=== PATIENT | female | born 1935 | race Caucasian/White ===

== ENCOUNTER 2017-05-18 08:20 | Inpatient (IN) | payer SELFPAY ==
[~2017-05-18] VITALS: Ht 152.4 cm; Wt 56.7 kg
[2017-05-18 08:50] LABS: BASOPHILS ABSOLUTE AUTO 0.05 K/mm3 (0.00-0.23); BASOPHILS PERCENT AUTO 1 % (0-2); EOSINOPHILS ABSOLUTE AUTO 0.12 K/mm3 (0.00-0.68); EOSINOPHILS PERCENT AUTO 2 % (0-6); Hematocrit 47.1 % (33.0-51.0); Hemoglobin 15.1 g/dL (11.5-16.0); IMMATURE GRAN ABSOLUTE AUTO 0.11 K/mm3 (0.00-0.10); IMMATURE GRAN PERCENT AUTO 1 % (0-1); LYMPHOCYTES ABSOLUTE AUTO 2.54 K/mm3 (0.84-5.20); LYMPHOCYTES PERCENT AUTO 32 % (21-46); MONOCYTES ABSOLUTE AUTO 0.54 K/mm3 (0.16-1.47); MONOCYTES PERCENT AUTO 7 % (4-13); Mean Corpuscular HGB 27.8 pg (26.0-34.0); Mean Corpuscular HGB Conc 32.1 g/dL (31.5-36.5); Mean Corpuscular Volume 87 fL (80-100); Mean Platelet Volume 9.9 fL (9.1-12.4); NEUTROPHILS ABSOLUTE AUTO 4.64 K/mm3 (1.96-9.15); NEUTROPHILS PERCENT AUTO 58 % (41-73); Platelet Count 244 K/mm3 (150-400); RDW Coefficient Variation 11.9 % (11.7-14.2); RDW Standard Deviation 38.3 fL (35.1-46.3); Red Blood Cell Count 5.43 M/mm3 (3.80-5.20)
[2017-05-18 10:38] LABS: International Normalized Ratio 1.03; Prothrombin Time Results 10.7 Sec (9.7-11.5)
[2017-05-18 10:43] LABS: Alanine Aminotransfer (ALT/SGP 50 U/L (12-78); Albumin, Blood 3.1 g/dL (3.4-5.0); Alk Phos 97 U/L (50-136); Anion Gap 6 mmol/L (6-16); Aspartate Aminotrans (AST/SGOT 42 U/L (12-37); Blood Urea Nitrogen 20 mg/dL (8-24); Bun/Creatinine Ratio 27.9 (12.0-20.0); CO2, Blood 25 mmol/L (21-32); Calcium, Blood 7.8 mg/dL (8.5-10.1); Chloride, Blood 109 mmol/L (98-108); Creatinine, Blood 0.72 mg/dL (0.40-1.00); Ethanol (Alcohol), Blood, Med <3 mg/dL; Globulin, Blood 3.1 g/dL (2.2-4.0); Glomerular Filtration Rate >60 (60-); Glucose, Blood 147 mg/dL (70-99); Potassium, Blood 4.3 mmol/L (3.5-5.5); Sodium, Blood 140 mmol/L (136-145); Total Protein, Blood 6.2 g/dL (6.4-8.2)
[2017-05-19 05:50] LABS: BASOPHILS PERCENT AUTO 0 % (0-2); EOSINOPHILS PERCENT AUTO 0 % (0-6); Hematocrit 36.9 % (33.0-51.0); Hemoglobin 11.6 g/dL (11.5-16.0); IMMATURE GRAN ABSOLUTE AUTO 0.07 K/mm3 (0.00-0.10); IMMATURE GRAN PERCENT AUTO 0 % (0-1); LYMPHOCYTES ABSOLUTE AUTO 0.77 K/mm3 (0.84-5.20); LYMPHOCYTES PERCENT AUTO 5 % (21-46); MONOCYTES ABSOLUTE AUTO 1.75 K/mm3 (0.16-1.47); MONOCYTES PERCENT AUTO 11 % (4-13); Mean Corpuscular HGB 28.1 pg (26.0-34.0); Mean Corpuscular HGB Conc 31.4 g/dL (31.5-36.5); Mean Corpuscular Volume 89 fL (80-100); NEUTROPHILS ABSOLUTE AUTO 13.33 K/mm3 (1.96-9.15); NEUTROPHILS PERCENT AUTO 84 % (41-73); RDW Coefficient Variation 12.3 % (11.7-14.2); RDW Standard Deviation 40.3 fL (35.1-46.3); Red Blood Cell Count 4.13 M/mm3 (3.80-5.20); White Blood Cell Count 15.92 K/mm3 (4.00-11.30)
[2017-05-19 05:59] LABS: Platelet Count 193 K/mm3 (150-400)
[2017-05-19 06:20] LABS: Anion Gap 9 mmol/L (6-16); Blood Urea Nitrogen 25 mg/dL (8-24); Bun/Creatinine Ratio 28.2 (12.0-20.0); CO2, Blood 21 mmol/L (21-32); Calcium, Blood 7.9 mg/dL (8.5-10.1); Chloride, Blood 108 mmol/L (98-108); Creatinine, Blood 0.89 mg/dL (0.40-1.00); Glomerular Filtration Rate >60 (60-); Glucose, Blood 157 mg/dL (70-99); Potassium, Blood 4.8 mmol/L (3.5-5.5); Sodium, Blood 138 mmol/L (136-145)
[2017-05-20] MEDS ORDERED: TRAM50 PO (13:21)
== END 2017-05-20 14:56 | disposition home or self-care (01) | DRG 464 ==
LOC: ER 08:20 → SURS 08:21 → EDBD 05-19 08:05 → SURS 05-19 08:05
PROVIDERS: Emergency Medicine; Orthopaedic Surgery
PROC: 0JQH0ZZ Repair Left Lower Arm Subcutaneous Tissue and Fascia, Open Approach (ICD-10-PCS; 2017-05-18)
PROC: 0JBJ0ZZ Excision of Right Hand Subcutaneous Tissue and Fascia, Open Approach (ICD-10-PCS; 2017-05-18)
PROC: 0MQ70ZZ Repair Right Hand Bursa and Ligament, Open Approach (ICD-10-PCS; principal; 2017-05-18 16:30)
PROC: 0JBH0ZZ Excision of Left Lower Arm Subcutaneous Tissue and Fascia, Open Approach (ICD-10-PCS; 2017-05-18 16:30)
DX: S56.922A Laceration of unspecified muscles, fascia and tendons at forearm level, left arm, initial encounter (principal); S27.0XXA Traumatic pneumothorax, initial encounter; S32.039A Unspecified fracture of third lumbar vertebra, initial encounter for closed fracture; S22.42XA Multiple fractures of ribs, left side, initial encounter for closed fracture; S56.425A Laceration of extensor muscle, fascia and tendon of right ring finger at forearm level, initial encounter; S51.812A Laceration without foreign body of left forearm, initial encounter; S61.411A Laceration without foreign body of right hand, initial encounter; V03.90XA Pedestrian on foot injured in collision with car, pick-up truck or van, unspecified whether traffic or nontraffic accident, initial encounter
CPT/HCPCS: 36415; 70450; 71046; 71260; 72125; 73090; 73130; 74177; 80048; 80053; 82947; 85025; 85610; 90471; 90714; 93005; 93010; 96361; 96374; 96375; 96376; 99285; G0480; J0171; J0690; J1100; J1170; J1885; J2370; J2405; J2710; J3010; J7030; J7120; Q9967

== ENCOUNTER 2017-07-12 00:02 | Day surgery (SDC) | payer SELFPAY ==
[~2017-07-12 00:02] MED LIST: TRAM50 PO
== END 2017-07-12 12:04 | disposition home or self-care (01) ==
LOC: WOUND 00:02
PROC: 0H5 Skin and Breast, Destruction (ICD-10-PCS; principal; 2017-07-12)
DX: S51.802A Unspecified open wound of left forearm, initial encounter (principal); S61.402A Unspecified open wound of left hand, initial encounter; V09.29XA Pedestrian injured in traffic accident involving other motor vehicles, initial encounter
CPT/HCPCS: G0463

== ENCOUNTER 2017-07-26 00:41 | Day surgery (SDC) | payer SELFPAY | END 2017-07-26 23:17 | disposition home or self-care (01) | LOC: WOUND 00:41 | PROC: 0H5 Skin and Breast, Destruction (ICD-10-PCS; principal; 2017-07-26) | DX: S51.802A Unspecified open wound of left forearm, initial encounter (principal); S61.402A Unspecified open wound of left hand, initial encounter; V09.29XA Pedestrian injured in traffic accident involving other motor vehicles, initial encounter | CPT/HCPCS: G0463 ==

== ENCOUNTER 2017-08-02 14:09 | Day surgery (SDC) | payer SELFPAY | END 2017-08-02 22:43 | disposition home or self-care (01) | LOC: WOUND 14:09 | PROC: 0H5 Skin and Breast, Destruction (ICD-10-PCS; principal; 2017-08-02) | DX: S51.802A Unspecified open wound of left forearm, initial encounter (principal); S61.402A Unspecified open wound of left hand, initial encounter; V09.29XA Pedestrian injured in traffic accident involving other motor vehicles, initial encounter | CPT/HCPCS: G0463 ==

== ENCOUNTER 2017-08-09 00:50 | Day surgery (SDC) | payer SELFPAY | END 2017-08-09 22:45 | disposition home or self-care (01) | LOC: WOUND 00:50 | DX: S51.802A Unspecified open wound of left forearm, initial encounter (principal); S61.402A Unspecified open wound of left hand, initial encounter; V09.29XA Pedestrian injured in traffic accident involving other motor vehicles, initial encounter | CPT/HCPCS: G0463 ==

== ENCOUNTER 2017-08-16 09:21 | Day surgery (SDC) | payer SELFPAY | END 2017-08-16 22:56 | disposition home or self-care (01) | LOC: WOUND 09:21 | PROC: 0H5 Skin and Breast, Destruction (ICD-10-PCS; principal; 2017-08-16) | DX: S51.802A Unspecified open wound of left forearm, initial encounter (principal); S61.402A Unspecified open wound of left hand, initial encounter | CPT/HCPCS: G0463 ==

== ENCOUNTER 2017-08-23 14:15 | Day surgery (SDC) | payer SELFPAY | END 2017-08-23 22:37 | disposition home or self-care (01) | LOC: WOUND 14:15 | PROC: 0H5 Skin and Breast, Destruction (ICD-10-PCS; principal; 2017-08-23) | DX: S51.802A Unspecified open wound of left forearm, initial encounter (principal); S61.402A Unspecified open wound of left hand, initial encounter | CPT/HCPCS: G0463 ==

== ENCOUNTER 2017-09-07 14:15 | Day surgery (SDC) | payer SELFPAY | END 2017-09-07 23:07 | disposition home or self-care (01) | LOC: WOUND 14:15 | PROC: 0H5 Skin and Breast, Destruction (ICD-10-PCS; principal; 2017-09-07) | DX: S51.802A Unspecified open wound of left forearm, initial encounter (principal); S61.402A Unspecified open wound of left hand, initial encounter; R22.2 Localized swelling, mass and lump, trunk | CPT/HCPCS: G0463 ==

== ENCOUNTER 2017-09-13 14:10 | Day surgery (SDC) | payer SELFPAY | END 2017-09-13 15:37 | disposition home or self-care (01) | LOC: WOUND 14:10 | PROC: 0H5 Skin and Breast, Destruction (ICD-10-PCS; principal; 2017-09-13) | DX: S51.802A Unspecified open wound of left forearm, initial encounter (principal); S61.402A Unspecified open wound of left hand, initial encounter; R22.2 Localized swelling, mass and lump, trunk | CPT/HCPCS: G0463 ==

== ENCOUNTER 2017-09-20 14:15 | Day surgery (SDC) | payer SELFPAY | END 2017-09-20 23:19 | disposition home or self-care (01) | LOC: WOUND 14:15 | DX: S51.802A Unspecified open wound of left forearm, initial encounter (principal); S61.402A Unspecified open wound of left hand, initial encounter; R22.2 Localized swelling, mass and lump, trunk | CPT/HCPCS: G0463 ==

== ENCOUNTER 2017-09-21 07:26 | Emergency (ER) | payer SELFPAY ==
[~2017-09-21] VITALS: Ht 152.4 cm; Wt 49.9 kg
== END 2017-09-21 09:46 | disposition home or self-care (01) ==
LOC: ER 07:26
DX: R19.00 Intra-abdominal and pelvic swelling, mass and lump, unspecified site (principal)
CPT/HCPCS: 71101; 99283

== ENCOUNTER 2017-09-27 14:15 | Day surgery (SDC) | payer SELFPAY | END 2017-09-27 16:38 | disposition home or self-care (01) | LOC: WOUND 14:15 | DX: Z48.00 Encounter for change or removal of nonsurgical wound dressing (principal); S51.802A Unspecified open wound of left forearm, initial encounter; S61.402A Unspecified open wound of left hand, initial encounter; V09.29XA Pedestrian injured in traffic accident involving other motor vehicles, initial encounter; R22.2 Localized swelling, mass and lump, trunk | CPT/HCPCS: G0463 ==

== ENCOUNTER 2018-05-08 05:53 | Emergency (ER) | payer SELFPAY ==
[~2018-05-08] VITALS: Ht 154.9 cm; Wt 49.9 kg
[2018-05-08] MEDS ORDERED: Prednisone20 MG PO (08:23)
[2018-05-08] MEDS ORDERED: ALBU90OI INH (08:23)
== END 2018-05-08 08:32 | disposition home or self-care (01) ==
LOC: ER 05:53
DX: J20.9 Acute bronchitis, unspecified (principal); R51 Headache
CPT/HCPCS: 71046; 94640; 99283-25

== ENCOUNTER 2019-06-05 15:34 | Emergency (ER) | payer SELFPAY ==
[~2019-06-05] VITALS: Ht 152.4 cm; Wt 49.9 kg
[~2019-06-05 15:34] MED LIST changes: +ALBU90OI INH; +Prednisone20 MG PO
== END 2019-06-05 19:26 | disposition home or self-care (01) ==
LOC: ER 15:34
DX: N63.0 Unspecified lump in unspecified breast (principal)
CPT/HCPCS: 99283

== ENCOUNTER 2019-10-11 09:51 | Day surgery (SDC) | payer SELFPAY ==
[~2019-10-11] VITALS: Ht 152.4 cm; Wt 52.0 kg
--- NOTE | 2019-10-11 12:23 | NUR ---
10/11/19 1223 JOSE VIDALES MULTIPLE IV ATTEMPTS.
--- NOTE | 2019-10-11 15:19 | NUR ---
10/11/19 1519 Judith Tellez PT STATES HAVING SOME PAIN ON THE LEFT SIDE OF CHEST FOLLOWING PROCEDURE BUT REFUSED RX OXYCODONE AND TYLENOL. PT STATES PAIN IS TOLERABLE AT THIS TIME.
== END 2019-10-11 15:44 | disposition home or self-care (01) ==
LOC: ORSCSDS 09:51
PROVIDERS: Surgery
PROC: 07B60ZX Excision of Left Axillary Lymphatic, Open Approach, Diagnostic (ICD-10-PCS; principal; 2019-10-11 13:45)
PROC: 0HBU0ZZ Excision of Left Breast, Open Approach (ICD-10-PCS; principal; 2019-10-11 13:45)
DX: C50.512 Malignant neoplasm of lower-outer quadrant of left female breast (principal); C77.3 Secondary and unspecified malignant neoplasm of axilla and upper limb lymph nodes
CPT/HCPCS: 38792; 88307; A9520; J0690; J1100; J2405; J2704; J3010; J7120; Q9968

== ENCOUNTER 2019-11-17 07:37 | Day surgery (SDC) | payer SELFPAY | END 2019-11-17 22:50 | disposition home or self-care (01) | LOC: MOI US 07:37 | DX: C77.3 Secondary and unspecified malignant neoplasm of axilla and upper limb lymph nodes (principal); C50.912 Malignant neoplasm of unspecified site of left female breast | CPT/HCPCS: 38505; 76942; 88305; 88341; 88342 ==

== ENCOUNTER 2020-03-07 10:53 | Day surgery (SDC) | payer SELFPAY ==
[~2020-03-07 10:53] MED LIST changes: +OXYC5
--- NOTE | 2020-03-07 13:04 | NUR ---
03/07/20 1303 HARIKA PALOMINO 1303-UPDATED PATIENT ON SURGERY TIME BEING DELAYED SLIGHTLY. PATIENT IS RESTING COMFORTABLY. NO COMPLAINTS OF PAIN.
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
== END 2020-03-07 15:20 | disposition home or self-care (01) ==
LOC: ORSCSDS 10:53
PROVIDERS: Surgery
PROC: 07B60ZX Excision of Left Axillary Lymphatic, Open Approach, Diagnostic (ICD-10-PCS; principal; 2020-03-07 13:15)
DX: C50.512 Malignant neoplasm of lower-outer quadrant of left female breast (principal); C77.3 Secondary and unspecified malignant neoplasm of axilla and upper limb lymph nodes
CPT/HCPCS: 88307; J0690; J1100; J1885; J2250; J2405; J2704; J3010; J7120

== ENCOUNTER 2022-06-18 09:16 | Emergency (ER) | payer SELFPAY ==
[~2022-06-18] VITALS: Ht 152.4 cm; Wt 54.4 kg
[2022-06-18] MEDS ORDERED: DILT120 PO (09:39)
[2022-06-18 10:06] LABS: BASOPHILS ABSOLUTE AUTO 0.03 K/mm3 (0.00-0.23); BASOPHILS PERCENT AUTO 1 % (0-2); EOSINOPHILS ABSOLUTE AUTO 0.08 K/mm3 (0.00-0.68); EOSINOPHILS PERCENT AUTO 1 % (0-6); Hematocrit 42.6 % (33.0-51.0); Hemoglobin 14.4 g/dL (11.5-16.0); IMMATURE GRAN ABSOLUTE AUTO 0.05 K/mm3 (0.00-0.10); IMMATURE GRAN PERCENT AUTO 1 % (0-1); LYMPHOCYTES PERCENT AUTO 12 % (21-46); MONOCYTES ABSOLUTE AUTO 0.77 K/mm3 (0.16-1.47); MONOCYTES PERCENT AUTO 14 % (4-13); Mean Corpuscular HGB 28.5 pg (26.0-34.0); Mean Corpuscular HGB Conc 33.8 g/dL (31.5-36.5); Mean Corpuscular Volume 84 fL (80-100); Mean Platelet Volume 10.5 fL (9.1-12.4); NEUTROPHILS ABSOLUTE AUTO 4.08 K/mm3 (1.96-9.15); NEUTROPHILS PERCENT AUTO 71 % (41-73); Platelet Count 209 K/mm3 (150-400); RDW Standard Deviation 39.6 fL (35.1-46.3); Red Blood Cell Count 5.05 M/mm3 (3.80-5.20); White Blood Cell Count 5.71 K/mm3 (4.00-11.30)
[2022-06-18 10:26] LABS: Albumin, Blood 3.3 g/dL (3.4-5.0); Albumin/Globulin Ratio 0.8 (0.8-1.8); Bilirubin, Total 1.3 mg/dL (0.1-1.0); Bun/Creatinine Ratio 14.8 (12.0-20.0); Creatinine, Blood 0.67 mg/dL (0.40-1.00); Globulin, Blood 3.9 g/dL (2.2-4.0); Potassium, Blood 4.4 mmol/L (3.5-5.5); Total Protein, Blood 7.2 g/dL (6.4-8.2)
== END 2022-06-18 13:50 | disposition home or self-care (01) ==
LOC: ER 09:16
PROVIDERS: Physician Assistant
DX: R06.02 Shortness of breath (principal); Z79.899 Other long term (current) drug therapy
CPT/HCPCS: 36415; 71046; 80053; 83690; 83880; 84484; 85025; 93005; 93010; 99284-25

== ENCOUNTER 2024-04-27 13:30 | Inpatient (IN) | payer SELFPAY ==
[~2024-04-27] VITALS: Ht 152.4 cm; Wt 46.0 kg
[~2024-04-27 13:30] MED LIST changes: +DILT120 PO
[2024-04-27] MEDS ORDERED: Diltiazem HCl 5 MG / ML 5ML Vial IV ONE ×2 (15:15→21:43)
[2024-04-27 15:56] LABS: BASOPHILS ABSOLUTE AUTO 0.01 K/mm3 (0.00-0.23); BASOPHILS PERCENT AUTO 0 % (0-2); EOSINOPHILS PERCENT AUTO 0 % (0-6); Hematocrit 44.4 % (33.0-51.0); Hemoglobin 14.7 g/dL (11.5-16.0); IMMATURE GRAN ABSOLUTE AUTO 0.02 K/mm3 (0.00-0.10); IMMATURE GRAN PERCENT AUTO 0 % (0-1); LYMPHOCYTES ABSOLUTE AUTO 0.56 K/mm3 (0.84-5.20); LYMPHOCYTES PERCENT AUTO 11 % (21-46); MONOCYTES ABSOLUTE AUTO 1.08 K/mm3 (0.16-1.47); MONOCYTES PERCENT AUTO 21 % (4-13); Mean Corpuscular HGB 28.5 pg (26.0-34.0); Mean Corpuscular HGB Conc 33.1 g/dL (31.5-36.5); Mean Corpuscular Volume 86 fL (80-100); Mean Platelet Volume 9.9 fL (9.1-12.4); NEUTROPHILS ABSOLUTE AUTO 3.54 K/mm3 (1.96-9.15); NEUTROPHILS PERCENT AUTO 68 % (41-73); Platelet Count 203 K/mm3 (150-400); RDW Coefficient Variation 13.4 % (11.7-14.2); RDW Standard Deviation 42.1 fL (35.1-46.3); Red Blood Cell Count 5.15 M/mm3 (3.80-5.20); White Blood Cell Count 5.21 K/mm3 (4.00-11.30)
[2024-04-27 16:20] LABS: Albumin, Blood 3.8 g/dL (3.4-5.0); Albumin/Globulin Ratio 1.1 (0.8-1.8); Bilirubin, Total 1.1 mg/dL (0.1-1.0); Bun/Creatinine Ratio 29.2 (12.0-20.0); Calcium, Blood 8.9 mg/dL (8.5-10.1); Creatinine, Blood 0.86 mg/dL (0.40-1.00); Globulin, Blood 3.4 g/dL (2.2-4.0); Potassium, Blood 4.2 mmol/L (3.5-5.5); Total Protein, Blood 7.2 g/dL (6.4-8.2)
[2024-04-27] MEDS ORDERED: FLU VACC TS2024-25(6MOS UP)/PF 45 MCG/0.5 ML SYRINGE IM PRN (16:25)
[2024-04-27] MEDS ORDERED: ANAS1 PO (16:26)
[2024-04-27] MEDS ORDERED: CARTIA XT120 M1 PO (16:27)
[2024-04-27 16:53] LABS: pH Blood Arterial 7.43 (7.35-7.45)
[2024-04-27] MEDS ORDERED: Enoxaparin 40 MG/0.4 ML SYR SC SCH (18:00)
[2024-04-27 18:08] VITALS: BP 146/89
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
[2024-04-27 19:22] VITALS: BP 142/101
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
--- NOTE | 2024-04-27 22:42 | NUR ---
NURSE NOTE PATIENT APPEARS TO HAVE BOTH UPPER AND LOWER DENTURES. STAFF OFFERED TO CLEAN THEM FOR PT AND SOAK THEM OVER NIGHT PT DENIED. STAFF OFFERED HER ORAL CARE SUPPLIES SHE REFUSED THOSE WELL, EDUCATION PROVIDED ON IMPORTANCE OF ORAL CARE. AFTER PT SHOWER SHE REFUSED TO ALLOW STAFF TO COMB OUT HER HAIR, SHE DID NOT WISH TO DO SO EITHER. COMB PROVIDED AND PLACED AT PT BEDSIDE. BED IN LOWEST POSTION, SIDE RAILS UP X2, BED ALARM ON, CALL LIGHT IN REACH.
[2024-04-27 23:41] VITALS: BP 136/87
[2024-04-28 03:28] VITALS: BP 119/89
--- NOTE | 2024-04-28 04:51 | NUR ---
SHIFT SUMMARY PATIENT IS ALERT BUT ONLY ORIENTATED TO PLACE AND SELF. PT ON TELE AFIB ON THE MONITOR, HEART RATE ELEVATED, DILT IV PUSH GIVEN PER EMAR ORDERS. O2 DEMANDS BETWEEN 2-5 LITERS ON NC DURING THE SHIFT. BED ALARM IN PLACE FOR SAFETY. PT INCONTINENT OF URINE DURING SHIFT, IS A ONE PERSON ROLL CHANGE IN BED. ONE PERSON ASSIST WITH FWW FOR TRANSFER. PRESSURE SORE NOTED ON HER COCCYX, MEPILEX PLACE. PT RESPOSTIONS SELF IN BED. PT HAS NOT USED THE CALL LIGHT FOR THIS RN, EDUCATED ON PURPOSE OF CALL LIGHT. PT DENIED NEEDS ON LAST ROUNDING, WILL CONTINUE TO TREAT AND REPORT TO ONCOMING RN.
[2024-04-28 04:54] LABS: BASOPHILS ABSOLUTE AUTO 0.02 K/mm3 (0.00-0.23); BASOPHILS PERCENT AUTO 0 % (0-2); EOSINOPHILS PERCENT AUTO 0 % (0-6); Hematocrit 44.3 % (33.0-51.0); Hemoglobin 14.6 g/dL (11.5-16.0); IMMATURE GRAN ABSOLUTE AUTO 0.01 K/mm3 (0.00-0.10); IMMATURE GRAN PERCENT AUTO 0 % (0-1); LYMPHOCYTES PERCENT AUTO 32 % (21-46); MONOCYTES ABSOLUTE AUTO 1.03 K/mm3 (0.16-1.47); MONOCYTES PERCENT AUTO 19 % (4-13); Mean Corpuscular HGB 28.9 pg (26.0-34.0); Mean Corpuscular Volume 88 fL (80-100); Mean Platelet Volume 10.6 fL (9.1-12.4); NEUTROPHILS ABSOLUTE AUTO 2.64 K/mm3 (1.96-9.15); NEUTROPHILS PERCENT AUTO 49 % (41-73); Platelet Count 189 K/mm3 (150-400); RDW Coefficient Variation 13.6 % (11.7-14.2); RDW Standard Deviation 43.8 fL (35.1-46.3); Red Blood Cell Count 5.06 M/mm3 (3.80-5.20)
[2024-04-28 05:27] LABS: Albumin, Blood 3.5 g/dL (3.4-5.0); Albumin/Globulin Ratio 1.1 (0.8-1.8); Bilirubin, Total 0.8 mg/dL (0.1-1.0); Bun/Creatinine Ratio 27.3 (12.0-20.0); Calcium, Blood 8.4 mg/dL (8.5-10.1); Creatinine, Blood 0.95 mg/dL (0.40-1.00); Globulin, Blood 3.2 g/dL (2.2-4.0); Magnesium, Blood 2.1 mg/dL (1.6-2.4); Phosphorus, Blood 3.2 mg/dL (2.5-4.9); Potassium, Blood 3.9 mmol/L (3.5-5.5); Total Protein, Blood 6.7 g/dL (6.4-8.2)
[2024-04-28 07:40] VITALS: BP 120/83
[2024-04-28] MEDS ORDERED: dilTIAZem HCL 120 MG CAP.CD PO SCH (09:00)
[2024-04-28] MEDS ORDERED: Anastrozole 1 MG TAB PO SCH (09:00)
--- NOTE | 2024-04-28 09:56 | NUR ---
am note this rn assumed care at 0700. vital signs stable. tele aflutter 130s. patient is alert and oriented to self, place, and person. patient states the year is "25" and the month is "12". patient get her birthday mixed up and will say [birth year] then say [birth year], but is not sure which one is correct. patient unable to state to this rn how old she is. patient denies pain, chest pain/pressure or shortness of breath. see shift assessment for further detials. patient worked with therapy and got into a chair but was limited due to heart rate in the 160s with activity.
[2024-04-28] MEDS ORDERED: Diltiazem HCl 5 MG / ML 5ML Vial IV ONE (11:30)
--- NOTE | 2024-04-28 11:32 | NUR ---
update occupational therapy in to do cog eval and work with patient. while patient sitting at side of bed heart rate increased to 150s and sustained. this rn called md zendejas and md zendejas into room and ordered one time dose of 10mg cardizem push. patient is alert and oriented to self and place. unable to tell this rn the date. patient mood is liabale with staff and when giving care or followig directions. bed alarm on.
[2024-04-28 11:44] VITALS: BP 118/74
[2024-04-28 12:49] VITALS: BP 105/87
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
[2024-04-28 15:34] VITALS: BP 102/71
[2024-04-28] MEDS ORDERED: dilTIAZem HCL 60 MG TAB PO SCH (16:00)
--- NOTE | 2024-04-28 17:26 | NUR ---
shift summary see previous notes. neuro remains the same. no acute changes. increase in oral cardizem. vitals remain stable.
[2024-04-28 19:59] VITALS: BP 109/82
[2024-04-29] VITALS (7 sets, daily range): BP systolic 104–124; BP diastolic 69–92
--- NOTE | 2024-04-29 05:29 | NUR ---
SHIFT SUMMARY PATIENT IS ALERT, ORIENTATION BETWEEN 1-3, AWARE OF SITUATION, PLACE AND SELF. COGNITION SLIGHTLY IMPROVED FROM PREVIOUS NIGHT WHEN THIS RN CARED FOR PT. PT WAS ABLE TO ANSWER SOME QUESTIONS CORRECTLY AND FOLLOW SIMPLE COMMANDS. PT BEGAN USING CALL LIGHT THIS SHIFT TO IDENTIFY NEEDS TO STAFF. PT REMAINED INCONTIENT OF URINE BUT DID ALERT STAFF TO ASSIT HER TO THE COMMAND FOR A BM. VSS, HR REMAINS ELEVATED IN THE 100s SHOWING AFLUTTER ON THE MONITOR, RESPONDING WELL TO PO CARDIZEM. PT REMAINS ON NC BETWEEN 2-5 LITERS, CONTINOUS PULSE BIOX IN PLACE. PT REPOSTIONS SELF IN BED, STAFF ASSISTED TO REPOSTION PT INTERMIT. BED ALARM ON, BED IN LOWEST POSTION, CALL LIGHT IN REACH, WILL CONTINUE TO TREAT AND REPORT TO ON COMING RN.
--- NOTE | 2024-04-29 09:59 | NUR ---
am note this rn assumed care at 0700. vital signs stable. tele afib/aflutter 100s. spo2 >90% on 2l nc. patient is alert and oriented to person, place, and self. patient is able to state the year "" and then state the month from stating "march" and then stating april. patient is using call light. denies pain, chest pain/pressure or shortness of breath. see shift assessment for further detials. md burden in to see patient and discussed plan of care. patient did state she is from [place].
--- NOTE | 2024-04-29 17:16 | NUR ---
shift summary patient neuro remains unchanged this shift. patient is alert and oriented to person, place and self. vitals remain stable. tele afib 100s. no acute changes. plan remains up to date
[2024-04-29] MEDS ORDERED: dilTIAZem HCL 60 MG TAB PO SCH (21:00)
[2024-04-30 03:04] VITALS: BP 117/81
[2024-04-30 03:53] LABS: BASOPHILS ABSOLUTE AUTO 0.01 K/mm3 (0.00-0.23); BASOPHILS PERCENT AUTO 0 % (0-2); EOSINOPHILS PERCENT AUTO 0 % (0-6); Hematocrit 42.8 % (33.0-51.0); Hemoglobin 13.9 g/dL (11.5-16.0); IMMATURE GRAN ABSOLUTE AUTO 0.02 K/mm3 (0.00-0.10); IMMATURE GRAN PERCENT AUTO 1 % (0-1); LYMPHOCYTES ABSOLUTE AUTO 0.78 K/mm3 (0.84-5.20); LYMPHOCYTES PERCENT AUTO 19 % (21-46); MONOCYTES ABSOLUTE AUTO 0.77 K/mm3 (0.16-1.47); MONOCYTES PERCENT AUTO 19 % (4-13); Mean Corpuscular HGB 28.1 pg (26.0-34.0); Mean Corpuscular HGB Conc 32.5 g/dL (31.5-36.5); Mean Corpuscular Volume 87 fL (80-100); Mean Platelet Volume 10.3 fL (9.1-12.4); NEUTROPHILS ABSOLUTE AUTO 2.57 K/mm3 (1.96-9.15); NEUTROPHILS PERCENT AUTO 62 % (41-73); Platelet Count 170 K/mm3 (150-400); RDW Coefficient Variation 13.2 % (11.7-14.2); RDW Standard Deviation 41.5 fL (35.1-46.3); Red Blood Cell Count 4.95 M/mm3 (3.80-5.20); White Blood Cell Count 4.15 K/mm3 (4.00-11.30)
[2024-04-30 04:17] LABS: Anion Gap 9 mmol/L (3-11); Blood Urea Nitrogen 24 mg/dL (8-24); Bun/Creatinine Ratio 34.4 (12.0-20.0); CO2, Blood 29 mmol/L (21-32); Calcium, Blood 8.5 mg/dL (8.5-10.1); Chloride, Blood 104 mmol/L (98-108); Glomerular Filtration Rate 84 (60-); Glucose, Blood 111 mg/dL (70-99); Phosphorus, Blood 2.8 mg/dL (2.5-4.9); Potassium, Blood 3.7 mmol/L (3.5-5.5); Sodium, Blood 138 mmol/L (136-145)
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
[2024-04-30 07:40] VITALS: BP 108/71
[2024-04-30 08:03] VITALS: BP 129/84
[2024-04-30] MEDS ORDERED: Metoprolol Tartrate 50 MG Tab PO SCH (09:20)
--- NOTE | 2024-04-30 11:15 | NUR ---
REPORT GIVEN TO BERNICE ON MEDICAL FLOOR. PT TO BE TAKEN TO MEDICAL FLOOR BY MECHANICAL TECHNICAL SERVICE SPECIALIST FOR CONTINUED CARE.
--- NOTE | 2024-04-30 15:40 | NUR ---
TRANSFER - LATE ENTRY: PT TRANSFERRED TO MEDICAL FLOOR AROUND 1130 VIA HOSPITAL BED. TELE IN PLACE. 2L [address] CALL LIGHT IN REACH.
[2024-04-30 18:04] VITALS: BP 120/81
--- NOTE | 2024-04-30 19:52 | NUR ---
SHIFT SUMMARY: PT ORIENTED X3-4. PT VERY LETHARGIC UPON ARRIVAL TO MEDICAL FLOOR AND T/O SHIFT. PT ON 2L MAINTAINING SATS >90%. PT INCONTINENT. URINE NOTED TO SMELL VERY STRONG. PT AWARE TOX SCREEN IS NEEDING TO BE OBTAINED. LUNG SOUNDS WHEEZY. TELE IN PLACE. CALL LIGHT IN REACH. BED IN LOWEST POSITION.
[2024-04-30 19:57] VITALS: BP 119/86
[2024-05-01 02:42] VITALS: BP 147/93
--- NOTE | 2024-05-01 04:47 | NUR ---
SHIFT SUMMARY 88 YR F ADMITTED ON 04/27/24. FULL CODE. NO ACUTE CHANGES THIS SHIFT. PT HAS SLEPT FOR MOST OF THIS SHIFT BUT HAS BEEN COOPERATIVE WITH CARE. DUE TO PT SMELLING STRONGLY OF URINE, INTERNATIONAL TAX MANAGER GAVE HER A BED BATH AND BED CHANGE. THE SMELL IS BETTER NOW. PT IS INCONTINENT OF BLADDER AND BOWEL. LUNG SOUNDS ARE "GURGLY" SO PT IS BEING KEPT IN AN UPRIGHT POSITION FOR EASIER BREATHING. NO ADVERSE EVENTS REPORTED FROM RESIDENCE COUNSELOR. WILL CONTINUE TO MONITOR. BED IN LOW POSITION AND CALL LIGHT IN REACH.
[2024-05-01 06:27] LABS: BASOPHILS ABSOLUTE AUTO 0.03 K/mm3 (0.00-0.23); BASOPHILS PERCENT AUTO 1 % (0-2); EOSINOPHILS PERCENT AUTO 0 % (0-6); Hematocrit 49.1 % (33.0-51.0); Hemoglobin 15.3 g/dL (11.5-16.0); IMMATURE GRAN ABSOLUTE AUTO 0.02 K/mm3 (0.00-0.10); IMMATURE GRAN PERCENT AUTO 0 % (0-1); LYMPHOCYTES ABSOLUTE AUTO 1.15 K/mm3 (0.84-5.20); LYMPHOCYTES PERCENT AUTO 19 % (21-46); MONOCYTES ABSOLUTE AUTO 1.28 K/mm3 (0.16-1.47); MONOCYTES PERCENT AUTO 21 % (4-13); Mean Corpuscular HGB 27.7 pg (26.0-34.0); Mean Corpuscular HGB Conc 31.2 g/dL (31.5-36.5); Mean Corpuscular Volume 89 fL (80-100); Mean Platelet Volume 10.7 fL (9.1-12.4); NEUTROPHILS ABSOLUTE AUTO 3.73 K/mm3 (1.96-9.15); NEUTROPHILS PERCENT AUTO 60 % (41-73); Platelet Count 178 K/mm3 (150-400); RDW Coefficient Variation 13.1 % (11.7-14.2); RDW Standard Deviation 42.9 fL (35.1-46.3); Red Blood Cell Count 5.52 M/mm3 (3.80-5.20); White Blood Cell Count 6.21 K/mm3 (4.00-11.30)
[2024-05-01 06:53] LABS: Anion Gap 12 mmol/L (3-11); Blood Urea Nitrogen 24 mg/dL (8-24); Bun/Creatinine Ratio 34.9 (12.0-20.0); CO2, Blood 26 mmol/L (21-32); Calcium, Blood 8.8 mg/dL (8.5-10.1); Chloride, Blood 103 mmol/L (98-108); Creatinine, Blood 0.69 mg/dL (0.40-1.00); Glomerular Filtration Rate 84 (60-); Glucose, Blood 110 mg/dL (70-99); Potassium, Blood 4.3 mmol/L (3.5-5.5); Sodium, Blood 137 mmol/L (136-145)
[2024-05-01 07:13] VITALS: BP 134/93
--- NOTE | 2024-05-01 09:00 | NUR ---
pt laying in bed awake a/ox2-3, pleasant and cooperative with care, follows commands well, denies pain at this time, lungs are course with wheezing on exp t/o, resp even and unlabored, productive harsh cough, on 2 liters 02 via n/c, hrirr, tele in place running afib per monitor, see strip, no edema noted, ppp+1, cap refill<3 sec, vs stable, afebrile, piv to rfa site is clear and patent, btx4, abd flat soft nontender, voids without diff, skin c/w/d, maew, estefany, call light in reach.
--- NOTE | 2024-05-01 12:49 | NUR ---
pt sitting up dangling on the side of the bed, no complaints or needs at this time. call light in reach.
[2024-05-01 15:16] VITALS: BP 134/93
--- NOTE | 2024-05-01 18:11 | NUR ---
pt resting in bed with eyes closed wakes and asks for something for her ear, went through everything I could think of for her, she said no thats not it, go ask that other lady. she has a very harsh wet cough, court appointed rach here to see her today, no further changes this shift. call light in reach.
[2024-05-01 21:40] VITALS: BP 107/67
[2024-05-02 03:13] VITALS: BP 147/115
--- NOTE | 2024-05-02 03:39 | NUR ---
SHIFT SUMMARY 88 YR F ADMITTED ON 04/27/24. FULL CODE. NO ACUTE CHANGES THIS SHIFT. PT HAS SLEPT OFF AND ON THROUGHOUT THE NIGHT. SHE IS INCONTINENT AND IS A VERY HEAVY WETTER. HER URINE SMELLS VERY STRONG BUT WE HAVE BEEN UNABLE TO GET A SAMPLE SO FAR. NO C/O PAIN OR DISCOMFORT. COUGH IS WET AND "GURGLY". HR GOT HIGH 165 SO METOPROLOL WAS GIVEN THAT WAS HELD AT 2100 DUE TO BP AND HR BEING IN THE LOWER RANGE. WILL CONTINUE TO MONITOR. BED IN LOW POSITION AND CALL LIGHT IN REACH.
[2024-05-02 07:46] VITALS: BP 129/98
[2024-05-02] MEDS ORDERED: Bisacodyl 10 MG Supp PR PRN (13:50)
[2024-05-02] MEDS ORDERED: Magnesium Hydroxide Conc 10 ML UDC PO PRN (13:55)
[2024-05-02 15:15] VITALS: BP 137/107
--- NOTE | 2024-05-02 15:16 | NUR ---
NOTE: NOTIFIED BY MOSHGIACH OF ELEVATED HR. TELE CONSULTED AND STATED THE PT WAS IN AFLUTTER, SUSTAINING 130'S. DR. ZEE NOTIFIED AND NEW ORDERS WILL BE PLACED.
[2024-05-02] MEDS ORDERED: Metoprolol Tartrate 1 MG/ML 5 ML VIAL IV PRN (15:25)
--- NOTE | 2024-05-02 17:01 | NUR ---
Met with patient at bedside. She has intermittent confusion, but she was clear with discussion on end of life. She states she wants to be buried by her , and states she would not want any attempt to "bring her back" if she . She states she would not want to be intubated, and would not want CPR, states she wants a "natural ." Bedside RN present for the conversation. Dr. Dalal notified, placing DNR order.
[2024-05-02] MEDS ORDERED: Metoprolol Tartrate 1 MG/ML 5 ML VIAL IV ONE (17:05)
[2024-05-02 17:15] VITALS: BP 151/102
--- NOTE | 2024-05-02 17:31 | NUR ---
NOTE: PT SUSTAINING IN THE 130'S, POST INITIAL METOPROLOL ADMINISTRATION. PER TELE, PT HR DROPPED TO 110'S FOR AN HOUR BUT RESUMED BACK INTO THE 130'S. DR. ZEE NOTIFIED AND A ONE TIME DOSE OF IV METOPROLOL ORDERED AND ADMINISTERED PER THE EMAR.
--- NOTE | 2024-05-02 17:32 | NUR ---
SHIFT SUMMARY PT AOX3, CONFUSION OFF AND ON. PT DOES NOT CALL AND CAN BE IMPULSIVE. CODE STATUS CHANGED TO DNR THIS SHIFT. PALLIATIVE CARE WAS AT THE BS DURING THE CONVERSATION. BR AT THIS TIME, PT DID NOT WORK WITH PT TODAY. BARIUM SWALLOW DONE TODAY. NO COMPLAINTS OF PAIN. SEE OTHER NOTE ABOUT ELEVATION IN HR. TELE AWARE AND FOLLOWING. REPOSITIONED THROUGHOUT THE SHIFT, BRIEF CHANGED NEEDED. EVENTS PER TELE IN OTHER NOTES. CALL LIGHT WITHIN REACH, BED LOCKED AND IN THE LOWEST POSITION. WILL REPORT TO ONCOMING NURSE.
[2024-05-02 19:10] VITALS: BP 112/76
[2024-05-02] MEDS ORDERED: Sennosides 8.6 MG Tab PO SCH (21:00)
[2024-05-02] MEDS ORDERED: Docusate Sodium 100 MG Cap PO SCH (21:00)
[2024-05-03 03:18] VITALS: BP 145/115
--- NOTE | 2024-05-03 04:06 | NUR ---
SHIFT SUMMARY A/O X1-3 DURING THIS SHIFT. ABLE TO MAKE HER NEEDS KNOWN. DOES NOT USE THE CALL LIGHT. FREQUENT CHECKING BY THE BEDSIDE. TELE:A-FIB @110 DURING HS. @0330 MEDICATED WITH IV METOPROLOL FOR HR 136, VS 145/115. PT IS ON 2L O2 VIA NASAL CANNULA. BED ALARM FOR SAFETY. BED AT THE LOWEST POSITION, CALL LIGHT W/I REACH. OFFERED NECTAR THICK LIQUIDS T/O THIS SHIFT.
[2024-05-03 04:23] VITALS: BP 146/120
[2024-05-03] MEDS ORDERED: Metoprolol Tartrate 1 MG/ML 5 ML VIAL IV ONE (05:25)
--- NOTE | 2024-05-03 05:25 | NUR ---
NEW T-ORDER FROM : ONE TIME ORDER LOPRESSOR 5MG IV. ENTERED TO [place], SEE EMAR. NO ADDITIONAL NEW ORDERS. UTILIZATION MANAGEMENT MANAGER NOTIFIED.
[2024-05-03 07:41] VITALS: BP 143/108
[2024-05-03 10:24] LABS: BASOPHILS ABSOLUTE AUTO 0.07 K/mm3 (0.00-0.23); BASOPHILS PERCENT AUTO 1 % (0-2); EOSINOPHILS ABSOLUTE AUTO 0.04 K/mm3 (0.00-0.68); EOSINOPHILS PERCENT AUTO 0 % (0-6); Hematocrit 54.9 % (33.0-51.0); IMMATURE GRAN ABSOLUTE AUTO 0.11 K/mm3 (0.00-0.10); IMMATURE GRAN PERCENT AUTO 1 % (0-1); LYMPHOCYTES ABSOLUTE AUTO 0.82 K/mm3 (0.84-5.20); LYMPHOCYTES PERCENT AUTO 7 % (21-46); MONOCYTES ABSOLUTE AUTO 1.66 K/mm3 (0.16-1.47); MONOCYTES PERCENT AUTO 13 % (4-13); Mean Corpuscular HGB 28.1 pg (26.0-34.0); Mean Corpuscular HGB Conc 32.8 g/dL (31.5-36.5); Mean Corpuscular Volume 86 fL (80-100); NEUTROPHILS ABSOLUTE AUTO 9.94 K/mm3 (1.96-9.15); NEUTROPHILS PERCENT AUTO 79 % (41-73); Platelet Count 255 K/mm3 (150-400); RDW Standard Deviation 40.7 fL (35.1-46.3); White Blood Cell Count 12.64 K/mm3 (4.00-11.30)
[2024-05-03 11:01] LABS: Bun/Creatinine Ratio 64.4 (12.0-20.0); Calcium, Blood 9.6 mg/dL (8.5-10.1); Creatinine, Blood 0.7 mg/dL (0.40-1.00); Magnesium, Blood 2.8 mg/dL (1.6-2.4); Potassium, Blood 4.8 mmol/L (3.5-5.5)
[2024-05-03] MEDS ORDERED: Acetaminophen 650 MG Supp PR PRN (11:45)
[2024-05-03] MEDS ORDERED: Morphine Sulfate 20 MG/1ML 1 ML Oral Syringe SL PRN (11:50)
[2024-05-03] MEDS ORDERED: LORazepam 1 MG Tab PO PRN (11:50)
[2024-05-03] MEDS ORDERED: Atropine Sulfate 1% Opth Soln 2ML BTL SL PRN (11:50)
[2024-05-03] MEDS ORDERED: Scopolamine Hydrobromide Patch TOP PRN (11:50)
[2024-05-03] MEDS ORDERED: Acetaminophen 160MG / 5ML 10.15 UDC PO PRN (11:50)
--- NOTE | 2024-05-03 12:58 | NUR ---
PT AOX2-3 WITH CONFUSION. PT HAD INCREASED RESPIRATIONS AND HR THIS AM. PT HAS BEEN WORKING HARD TO BREATH WITH. PT DOESN'T HELP MUCH TO TURN AND WAS NOT WANTING TO EAT. DR ZEE AND PALLIATIVE CARE CAME IN AND ASSESSED PT AND TALKED WITH HER IMMEDIATELY. COMFORT CARE MEASURES ARE NOW IN PLACE AFTER DISCUSSION WITH PT AND HER CLOSE FRIEND PT DOES NOT HAVE FAMILY. WILL CONTINUE TO TURN Q2 HRS AND MANAGE COMFORT LEVEL.
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
--- NOTE | 2024-05-03 16:19 | NUR ---
PT IS AOX2 SOMETIMES A 3 SEEMS TO WAKE UP AT TIMES. PT HAS CONTINUED TO STAY VERY LABORED WITH BREATHING AND HAS BEEN TREATED PER EMAR TO HELP MAKE HER MORE COMFORTABLE. PT'S LIMBS ARE VERY COLD YET PT INSIST SHE IS HOT AND WILL NOT HAVE A BLANKET. SHE HAS BEEN INCONTENT OF BOTH URINE AND BOWELS. WILL CONTINUE TO KEEP COMFORTABLE.
--- NOTE | 2024-05-04 06:44 | NUR ---
XXSHIFT SUMMARY AT START OF SHIFT, PT LYING IN BED SLEEPING. PT IS ON COMFORT CARE D/T SMOKE INHALATION. PT FRIEND, JONG AT BEDSIDE THROUGH NIGHT. CHANGED BRIEF PRN. ADMINISTERED ATROPINE AND ROXANOL THROUGHOUT SHIFT PRN.
--- NOTE | 2024-05-04 13:08 | NUR ---
COMFORT CARE SUPPORTIVE VISIT. JOINT VISIT WITH PROVIDER. FOCUSED ASSESSMENT. NO S/SX OF DISCOMFORT NOTED. ORAL CARE PROVIDED. NO GAG REFLEX. FRIEND DEBBIE AT BEDSIDE. SHE REPORTS SHE HAS BEEN PROVIDING ORAL CARES. SHE IS A CALM PRESENCE AND SUPPORTIVE FOR PATIENT. EOL S/SX EDUCATION PROVIDED TO FRIEND. SHE WAS VERY RECEPTIVE AND EXPRESSED GRATITUDE FOR TODAYS VISIT.
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
--- NOTE | 2024-05-04 17:06 | NUR ---
SHIFT SUMMARY PT A/O TO SELF. COMFORT CARE. ON 2L NC FOR COMFORT. MEDICATED WITH ROXANOL X1 AND ATROPINE DROPS PER JUN. SCOPOLAMINE PATCH IN PLACE BEHIND PT'S LEFT EAR. PT INCONT OF BOWELS AND BLADDER, ATTENDS CHANGED NEEDED. FRIENDS AT BEDSIDE THROUGHOUT THIS SHIFT.
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
== END 2024-05-05 04:30 | DRG 918 ==
LOC: ER 13:30 → ERHOLD 13:31 → PCU 17:48 → MEDS 04-30 11:30
PROVIDERS: Emergency Medicine; Family Medicine; ADMIT Family Medicine
PROC: 4A033R1 Measurement of Arterial Saturation, Peripheral, Percutaneous Approach (ICD-10-PCS; principal; 2024-04-27)
DX: T59.811A Toxic effect of smoke, accidental (unintentional), initial encounter (principal); F02.C4 Dementia in other diseases classified elsewhere, severe, with anxiety; Z68.1 Body mass index [BMI] 19.9 or less, adult; I48.92 Unspecified atrial flutter; I48.91 Unspecified atrial fibrillation; R09.02 Hypoxemia; R00.0 Tachycardia, unspecified; Z66 Do not resuscitate; C50.912 Malignant neoplasm of unspecified site of left female breast; X00.8XXA Other exposure to uncontrolled fire in building or structure, initial encounter; L89.151 Pressure ulcer of sacral region, stage 1; R62.7 Adult failure to thrive; G30.9 Alzheimer's disease, unspecified; Z51.5 Encounter for palliative care; R54 Age-related physical debility; Z79.899 Other long term (current) drug therapy; Z79.891 Long term (current) use of opiate analgesic; Z51.11 Encounter for antineoplastic chemotherapy; Z98.890 Other specified postprocedural states; Z90.12 Acquired absence of left breast and nipple
CPT/HCPCS: 36415; 36600; 71045; 74230; 80048; 80053; 80069; 82803; 83735; 84100; 85025; 92610; 92611; 93005; 93010; 94760; 94762; 96374; 97116; 97129; 97161; 97166; 99285-25; A9270; J1650